=== PATIENT | male | born 1940 | race Caucasian/White ===

== ENCOUNTER 2019-12-14 09:47 | Day surgery (SDC) | payer OTHER ==
[2019-12-10 13:07] LABS: BASOPHILS % (AUTO) 0.3 % (0.0-5.0); EOSINOPHILS % (AUTO) 1.5 % (0.0-8.0); HEMATOCRIT 35.5 % (42-54); LYMPHOCYTES % (AUTO) 37.7 % (21.0-51.0); MEAN CORPUSCULAR HEMOGLOBIN 29.7 pg (27.0-33.0); MEAN CORPUSCULAR HGB CONC 33.2 g/dL (32.0-36.0); MEAN CORPUSCULAR VOLUME 89.4 fL (79-99); MONOCYTES % (AUTO) 4.9 % (3.0-13.0); NEUTROPHILS % (AUTO) 54.9 % (40.0-77.0); PLATELET COUNT (AUTO) 114 K/uL (130-400); RED BLOOD CELL COUNT(AUTO) 3.97 MIL/uL (4.50-6.20); RED CELL DISTRIBUTION WIDTH 13.7 % (11.0-15.5); WHITE BLOOD COUNT (AUTO) 7.1 K/uL (4.8-10.8)
[2019-12-10 13:12] LABS: APPEARANCE,URINE Clear (CLEAR); BILIRUBIN,URINE Negative (NEGATIVE); COLOR,URINE Dark Yellow (YELLOW); GLUCOSE, URINE (UA) Negative (NEGATIVE); KETONES,URINE Negative (NEGATIVE); LEUKOCYTE ESTERASE ,URINE Negative (NEGATIVE); NITRATE,URINE Negative (NEGATIVE); OCCULT BLOOD,URINE Negative (NEGATIVE); PROTEIN,URINE Negative (NEGATIVE)
[2019-12-10 13:15] LABS: CREATININE 1.2 mg/dL (0.5-1.5); POTASSIUM 4.2 mmol/L (3.5-5.1)
[2019-12-10 13:18] LABS: INR 0.97 (0.85-1.15); PARTIAL THROMBOPLASTIN TIME 27.4 SEC (26.3-35.5); PROTHROMBIN TIME 10.5 SEC (9.6-11.6)
[2019-12-13 09:30] VITALS: BP 139/71
--- NOTE | 2019-12-13 12:58 | NUR ---
abnormal abnormal PLT COUNT and chest xray reported to brad FAIRCHILD. no further orders given ok to proceed with planned procedure
[2019-12-14] VITALS (9 sets, daily range): BP systolic 124–157; BP diastolic 66–81
[~2019-12-14] VITALS: Ht 177.8 cm; Wt 102.4 kg
[~2019-12-14 09:47] MED LIST: ASPI-556 PO; CALC-322 PO; ISOS30TA6 PO; METO-409 PO; MVI PO; PRAV80TA21 PO; RANO500T2 PO; TAMS-1 PO; UBID10CA6 PO; VITAMIN D
[2019-12-14] MEDS ORDERED: SODIUM CHLORIDE 0.9% 1000ML 1,000 ML IV ONE (10:33)
[2019-12-14] MEDS ORDERED: PRAV80TA21 PO (11:25)
[2019-12-14] MEDS ORDERED: RANO10003 PO (11:25)
[2019-12-14] MEDS ORDERED: ACET-2123 PO (11:42)
[2019-12-14] MEDS ORDERED: METO100T14 PO (11:42)
[2019-12-14] MEDS ORDERED: ISOS30TA6 PO (11:42)
[2019-12-14] MEDS ORDERED: PRAM1TAB7 PO (11:42)
[2019-12-14] MEDS ORDERED: FURO20TA4 PO (11:42)
[2019-12-14] MEDS ORDERED: OMEP20CA12 PO (11:42)
[2019-12-14] MEDS ORDERED: OXYB5TAB15 PO (11:42)
[2019-12-14] MEDS ORDERED: SODIUM BICARB 50MEQ 50ML VIAL ONE (12:45)
[2019-12-14] MEDS ORDERED: IOHEXOL-350 50ML VIAL IV ONE (12:45)
[2019-12-14] MEDS ORDERED: HEPARIN SODIUM 1000UNIT/ML 10ML VIAL ONE (12:45)
[2019-12-14] MEDS ORDERED: MIDAZOLAM HCL 1 MG/ML 2ML VIAL ONE (12:45)
[2019-12-14] MEDS ORDERED: MEPERIDINE-PF 25 MG/ML SYG ONE (12:45)
[2019-12-14] MEDS ORDERED: IOHEXOL 350 MG/ML 100ML INFUS..BTL IV ONE (12:45)
[2019-12-14] MEDS ORDERED: LIDOCAINE HCL 2% 20ML ONE (12:46)
[2019-12-14] MEDS ORDERED: NITROGLYCERIN 2 MG/VIAL VIAL IV ONE (12:48)
--- NOTE | 2019-12-14 14:30 | NUR ---
HANDOFF COMMUNICATION RECEIVED REPORT FROM MARU WHITFIELD RN USING SBAR. PATIENT IN [employer] AT THIS TIME AND PATIENT'S SPOUSE WAITING IN ROOM.
[2019-12-14] MEDS ORDERED: SODIUM CHLORIDE 0.9% 1000ML 1,000 ML IV SCH (14:51)
[2019-12-14] MEDS ORDERED: ACETAMINOPHEN-CODEINE 300/30MG TAB PO PRN ×2 (15:00)
--- NOTE | 2019-12-14 15:10 | NUR ---
PATIENT RETURNED FROM [facility] VIA BED BY CARLEY GARCIA / CARLEY BENTON. PATIENT AAOX3, RESPIRATIONS UNLABORED, VITAL SIGNS STABLE, DENIES ANY PAIN AT THIS TIME. DRESSING TO RIGHT GROWN IS DRY/INTACT, AREA IS SOFT/NONTENDER, DRY/INTACT. PATIENT'S SPOUSE AT BEDSIDE.
--- NOTE | 2019-12-14 18:57 | NUR ---
patient discharged from facility via wheelchair, patient assisted into private vehicle driven by spouse.
== END 2019-12-14 19:00 | disposition home or self-care (01) ==
LOC: DAH 09:47
PROVIDERS: ATTEND Internal Medicine Cardiovascular Disease
DX: I25.10 Atherosclerotic heart disease of native coronary artery without angina pectoris (principal); I34.0 Nonrheumatic mitral (valve) insufficiency; J44.9 Chronic obstructive pulmonary disease, unspecified; Z95.1 Presence of aortocoronary bypass graft; I10 Essential (primary) hypertension; E78.5 Hyperlipidemia, unspecified; Z85.46 Personal history of malignant neoplasm of prostate; Z79.01 Long term (current) use of anticoagulants; Z79.82 Long term (current) use of aspirin; Z79.899 Other long term (current) drug therapy
CPT/HCPCS: 36415; 71045; 80048; 81003; 85025; 85610; 85730; 93005; 93459; A4215; A4216; A4221; A4222; A4223 ×3; A4606; A4663; C1760; C1769 ×3; C1887; C1894; J1644; J2175; J2250; J3490 ×3; J7030; Q9965 ×2; Q9967 ×2; 99156; 99157

== ENCOUNTER → 2020-11-01 | Outpatient (CLI) | payer OTHER ==
[~2020-11-01] MED LIST changes: +ACET-2123 PO; +FURO20TA4 PO; -ISOS30TA6 PO; +ISOS30TA92 PO; -METO-409 PO; +METO100T14 PO; +OMEP20CA12 PO; +OXYB5TAB15 PO; +PRAM1TAB7 PO; +RANO10003 PO; -RANO500T2 PO; -TAMS-1 PO
== END | disposition home or self-care (01) ==
LOC: SHCH 13:46
PROVIDERS: ATTEND Internal Medicine Cardiovascular Disease
DX: R60.9 Edema, unspecified (principal)
CPT/HCPCS: 93970

== ENCOUNTER 2021-08-21 09:32 | Day surgery (SDC) | payer OTHER ==
[2021-08-17 09:29] LABS: BASOPHILS % (AUTO) 0.5 % (0.0-5.0); EOSINOPHILS % (AUTO) 1.8 % (0.0-8.0); HEMATOCRIT 34.2 % (42-54); LYMPHOCYTES % (AUTO) 23.3 % (21.0-51.0); MEAN CORPUSCULAR HEMOGLOBIN 29.3 pg (27.0-33.0); MEAN CORPUSCULAR HGB CONC 31.9 g/dL (32.0-36.0); MEAN CORPUSCULAR VOLUME 91.9 fL (79-99); NEUTROPHILS % (AUTO) 65.6 % (40.0-77.0); PLATELET COUNT (AUTO) 142 K/uL (130-400); RED BLOOD CELL COUNT(AUTO) 3.72 MIL/uL (4.50-6.20); RED CELL DISTRIBUTION WIDTH 14.3 % (11.0-15.5); WHITE BLOOD COUNT (AUTO) 6.2 K/uL (4.8-10.8)
[2021-08-17 09:37] LABS: APPEARANCE,URINE Clear (CLEAR); BILIRUBIN,URINE Small (NEGATIVE); COLOR,URINE Dark Yellow (YELLOW); GLUCOSE, URINE (UA) Negative (NEGATIVE); KETONES,URINE Negative (NEGATIVE); LEUKOCYTE ESTERASE ,URINE Trace (NEGATIVE); NITRATE,URINE Negative (NEGATIVE); OCCULT BLOOD,URINE Negative (NEGATIVE); PROTEIN,URINE POS 1+ mg/dL (NEGATIVE)
[2021-08-17 09:41] LABS: INR 1.07 (0.85-1.15); PROTHROMBIN TIME 11.6 SEC (9.6-11.6)
[2021-08-17 09:42] LABS: PARTIAL THROMBOPLASTIN TIME 28.5 SEC (26.3-35.5)
[2021-08-17 09:56] LABS: BACTERIA,URINE Rare /HPF (None Seen); RBC,URINE 0-1 /HPF (0-1); SQUAMOUS EPITHELIAL CELL,UR Few /HPF (0-2); WBC,URINE 0-1 /HPF (0-1)
[2021-08-17 09:57] LABS: CALCIUM OXALATE CRYSTALS,UR Moderate /LPF (None Seen)
[2021-08-17 10:09] LABS: CREATININE 1.6 mg/dL (0.5-1.5); POTASSIUM 4.2 mmol/L (3.5-5.1)
[2021-08-20 11:20] VITALS: BP 123/72
[~2021-08-21] VITALS: Ht 180.3 cm; Wt 105.5 kg
[2021-08-21] VITALS (10 sets, daily range): BP systolic 120–149; BP diastolic 56–75
[~2021-08-21 09:32] MED LIST changes: -ACET-2123 PO; -CALC-322 PO; +CALC0.5C11 PO; -FURO20TA4 PO; +FURO40TA5 PO; -MVI PO; -OMEP20CA12 PO; -UBID10CA6 PO; +VITA1CAP85 PO; -VITAMIN D
[2021-08-21] MEDS ORDERED: 0.9%NACL 1000ML 1,000 ML IV ONE (10:39)
[2021-08-21] MEDS ORDERED: SODIUM BICARB 50MEQ 50ML VIAL 50 ML ONE (14:14)
[2021-08-21] MEDS ORDERED: IOHEXOL 350 MG/ML 100ML INFUS..BTL IV ONE ×2 (14:14→15:01)
[2021-08-21] MEDS ORDERED: HEPARIN 10,000 UNIT/10ML (1,000 UNIT/ML) VIAL ONE (14:14)
[2021-08-21] MEDS ORDERED: NITROGLYCERIN 50MG VIAL ONE (14:14)
[2021-08-21] MEDS ORDERED: IOHEXOL-350 50ML VIAL IV ONE (14:14)
[2021-08-21] MEDS ORDERED: MEPERIDINE-PF 25 MG/ML SYG ONE ×2 (14:14→14:47)
[2021-08-21] MEDS ORDERED: MIDAZOLAM HCL 1 MG/ML 2ML VIAL ONE ×2 (14:15→14:47)
[2021-08-21] MEDS ORDERED: LIDOCAINE HCL 400MG/20ML VIAL ONE (14:15)
[2021-08-21] MEDS ORDERED: 0.9%NACL 10ML VIAL IVP SCH (16:00)
== END 2021-08-21 19:40 | disposition home or self-care (01) ==
LOC: DAH 09:32
PROVIDERS: ATTEND Internal Medicine Cardiovascular Disease
DX: I35.0 Nonrheumatic aortic (valve) stenosis (principal); I25.119 Atherosclerotic heart disease of native coronary artery with unspecified angina pectoris; I13.0 Hypertensive heart and chronic kidney disease with heart failure and stage 1 through stage 4 chronic kidney disease, or unspecified chronic kidney disease; N18.30 Chronic kidney disease, stage 3 unspecified; I50.42 Chronic combined systolic (congestive) and diastolic (congestive) heart failure; E78.5 Hyperlipidemia, unspecified; I87.2 Venous insufficiency (chronic) (peripheral); J44.9 Chronic obstructive pulmonary disease, unspecified; Z98.890 Other specified postprocedural states; Z95.5 Presence of coronary angioplasty implant and graft; Z79.01 Long term (current) use of anticoagulants; Z79.899 Other long term (current) drug therapy; Z95.1 Presence of aortocoronary bypass graft
CPT/HCPCS: 36415; 71045; 80048; 81001; 85025; 85610; 85730; 93005; 93461; A4215; A4216; A4221; A4222; A4223 ×3; A4606; A4663; C1760; C1769; C1893; C1894 ×2; J1644; J2175; J2250; J3490 ×3; J7030; Q9965; Q9967 ×2; 99156; 99157

== ENCOUNTER 2021-11-05 07:35 | Day surgery (SDC) | payer OTHER ==
[2021-11-02 10:35] LABS: BASOPHILS % (AUTO) 0.3 % (0.0-5.0); EOSINOPHILS % (AUTO) 1.4 % (0.0-8.0); HEMATOCRIT 33.7 % (42-54); LYMPHOCYTES % (AUTO) 20.5 % (21.0-51.0); MEAN CORPUSCULAR HEMOGLOBIN 28.8 pg (27.0-33.0); MEAN CORPUSCULAR HGB CONC 31.5 g/dL (32.0-36.0); MEAN CORPUSCULAR VOLUME 91.6 fL (79-99); MONOCYTES % (AUTO) 6.1 % (3.0-13.0); NEUTROPHILS % (AUTO) 71.1 % (40.0-77.0); PLATELET COUNT (AUTO) 178 K/uL (130-400); RED BLOOD CELL COUNT(AUTO) 3.68 MIL/uL (4.50-6.20); RED CELL DISTRIBUTION WIDTH 14.1 % (11.0-15.5); WHITE BLOOD COUNT (AUTO) 6.6 K/uL (4.8-10.8)
[2021-11-02 10:44] LABS: APPEARANCE,URINE Clear (CLEAR); BILIRUBIN,URINE Small (NEGATIVE); COLOR,URINE Dark Yellow (YELLOW); GLUCOSE, URINE (UA) Negative (NEGATIVE); KETONES,URINE Negative (NEGATIVE); LEUKOCYTE ESTERASE ,URINE Small (NEGATIVE); NITRATE,URINE Negative (NEGATIVE); OCCULT BLOOD,URINE Negative (NEGATIVE); PH,URINE 5.5 (5.0-8.0); PROTEIN,URINE Trace mg/dL (NEGATIVE)
[2021-11-02 10:45] LABS: CREATININE 1.5 mg/dL (0.5-1.5); INR 1.11 (0.85-1.15); POTASSIUM 3.4 mmol/L (3.5-5.1)
[2021-11-02 10:46] LABS: PARTIAL THROMBOPLASTIN TIME 30.6 SEC (26.3-35.5)
[2021-11-02 11:11] LABS: B-TYPE NATRIURETIC PEPTIDE 822 pg/mL (0-100)
[2021-11-02 11:24] LABS: BACTERIA,URINE Few /HPF (None Seen)
[2021-11-02 15:22] VITALS: BP 125/62
[2021-11-05] VITALS (14 sets, daily range): BP systolic 101–152; BP diastolic 55–82
[~2021-11-05] VITALS: Ht 180.3 cm; Wt 101.7 kg
[~2021-11-05 07:35] MED LIST changes: +ATOR-2 PO; +CHOL500051 PO; +FURO80TA3 PO; -PRAV80TA21 PO
[2021-11-05] MEDS ORDERED: 0.9%NACL 1000ML 1,000 ML IV SCH ×2 (08:00→11:30)
[2021-11-05] MEDS ORDERED: ACET-2743 PO (08:48)
[2021-11-05] MEDS ORDERED: HEPARIN 10,000 UNIT/10ML (1,000 UNIT/ML) VIAL ONE (09:04)
[2021-11-05] MEDS ORDERED: SODIUM BICARB 50MEQ 50ML VIAL 50 ML ONE (09:04)
[2021-11-05] MEDS ORDERED: LIDOCAINE HCL 1% 20 ML VIAL ONE (09:04)
[2021-11-05] MEDS ORDERED: MEPERIDINE-PF 25 MG/ML SYG ONE ×3 (09:05→10:41)
[2021-11-05] MEDS ORDERED: NITROGLYCERIN 50MG VIAL ONE (09:05)
[2021-11-05] MEDS ORDERED: MIDAZOLAM HCL 1 MG/ML 2ML VIAL ONE ×3 (09:05→10:41)
[2021-11-05] MEDS ORDERED: IOHEXOL 350 MG/ML 100ML INFUS..BTL IV ONE (09:05)
[2021-11-05] MEDS ORDERED: IOHEXOL-350 50ML VIAL IV ONE (09:05)
[2021-11-05] MEDS ORDERED: NICARDIPINE 25MG INJ IV ONE (09:09)
[2021-11-05] MEDS ORDERED: CLOPIDOGREL 300MG TAB ONE (11:10)
== END 2021-11-05 15:58 | disposition home or self-care (01) ==
LOC: DAH 07:35
PROVIDERS: ATTEND Internal Medicine Cardiovascular Disease
DX: I25.119 Atherosclerotic heart disease of native coronary artery with unspecified angina pectoris (principal); I25.5 Ischemic cardiomyopathy; I35.0 Nonrheumatic aortic (valve) stenosis; I13.0 Hypertensive heart and chronic kidney disease with heart failure and stage 1 through stage 4 chronic kidney disease, or unspecified chronic kidney disease; N18.30 Chronic kidney disease, stage 3 unspecified; I50.43 Acute on chronic combined systolic (congestive) and diastolic (congestive) heart failure; D64.9 Anemia, unspecified; I87.2 Venous insufficiency (chronic) (peripheral); Z95.1 Presence of aortocoronary bypass graft; Z79.899 Other long term (current) drug therapy; Z79.01 Long term (current) use of anticoagulants
CPT/HCPCS: 36415; 71045; 80048; 81001; 83880; 85025; 85347 ×2; 85610; 85730; 93005; 93455; A4215; A4216; A4221; A4222; A4223 ×3; A4606; A4663; C1769 ×5; C1874 ×3; C1887 ×4; C1894; C9604; J1644 ×2; J2175 ×3; J2250 ×3; J3490 ×3; Q9965; Q9967 ×2; 99156; 99157

== ENCOUNTER → 2023-06-03 | Outpatient (CLI) | payer OTHER ==
[~2023-06-03] MED LIST changes: +ACET-2743 PO; -OXYB5TAB15 PO; +OXYB5TAB20 PO
[2023-06-03 12:54] LABS: CREATININE 1.8 mg/dL (0.5-1.5); POTASSIUM 4.8 mmol/L (3.5-5.1)
== END | disposition home or self-care (01) ==
LOC: LAB 08:17
PROVIDERS: ATTEND Internal Medicine Cardiovascular Disease
DX: I10 Essential (primary) hypertension (principal); E78.5 Hyperlipidemia, unspecified
CPT/HCPCS: 36415; 80048; 83880

== ENCOUNTER → 2023-06-13 | Outpatient (CLI) | payer OTHER ==
[2023-06-13 15:29] LABS: ALBUMIN 3.3 g/dL (3.5-5.0); BILIRUBIN,TOTAL 0.6 mg/dL (0.2-1.0); CREATININE 2.1 mg/dL (0.5-1.5); MAGNESIUM 2.5 mg/dL (1.80-2.40); POTASSIUM 4.7 mmol/L (3.5-5.1); TOTAL PROTEIN, SERUM 7.7 g/dL (6.0-8.3)
== END | disposition home or self-care (01) ==
LOC: LAB 12:33
PROVIDERS: ATTEND Internal Medicine Cardiovascular Disease
DX: I11.0 Hypertensive heart disease with heart failure (principal); I50.22 Chronic systolic (congestive) heart failure
CPT/HCPCS: 36415; 80053; 83735; 83880

== ENCOUNTER → 2023-07-09 | Outpatient (CLI) | payer OTHER ==
[2023-07-09 12:22] LABS: BASOPHILS # (AUTO) 0.03 K/uL (0.00-0.20); BASOPHILS % (AUTO) 0.4 % (0.0-5.0); EOSINOPHILS # (AUTO) 0.04 K/uL (0.00-0.70); EOSINOPHILS % (AUTO) 0.5 % (0.0-8.0); IMMATURE GRANULOCYTE ABSOLUTE 0.04 K/uL (0-1); LYMPHOCYTES # (AUTO) 1.5 K/uL (1.0-4.8); LYMPHOCYTES % (AUTO) 20.1 % (21.0-51.0); MEAN CORPUSCULAR HGB CONC 34.1 g/dL (32.0-36.0); MEAN CORPUSCULAR VOLUME 93.7 fL (79-99); MONOCYTES # (AUTO) 0.5 K/uL (0.1-1.0); NEUTROPHILS # (AUTO) 5.4 K/uL (1.8-7.7); NEUTROPHILS % (AUTO) 71.5 % (40.0-77.0); PLATELET COUNT (AUTO) 173 K/uL (130-400); RED BLOOD CELL COUNT(AUTO) 3.63 MIL/uL (4.50-6.20); RED CELL DISTRIBUTION WIDTH 15.7 % (11.0-15.5); WHITE BLOOD COUNT (AUTO) 7.6 K/uL (4.8-10.8)
[2023-07-09 12:48] LABS: MAGNESIUM 2.5 mg/dL (1.80-2.40)
== END | disposition home or self-care (01) ==
LOC: LAB 09:52
PROVIDERS: ATTEND Internal Medicine Cardiovascular Disease
DX: I10 Essential (primary) hypertension (principal); E78.5 Hyperlipidemia, unspecified
CPT/HCPCS: 36415; 83735; 83880; 85025

== ENCOUNTER → 2023-12-12 | Outpatient (CLI) | payer OTHER ==
[2023-12-12 12:53] LABS: ALBUMIN 3.5 g/dL (3.5-5.0); BILIRUBIN,TOTAL 0.5 mg/dL (0.2-1.0); POTASSIUM 4.2 mmol/L (3.5-5.1); TOTAL PROTEIN, SERUM 7.4 g/dL (6.0-8.3)
== END | disposition home or self-care (01) ==
LOC: LAB 10:31
PROVIDERS: ATTEND Internal Medicine Cardiovascular Disease
DX: I10 Essential (primary) hypertension (principal); E78.5 Hyperlipidemia, unspecified
CPT/HCPCS: 36415; 80053